=== PATIENT | male | born 1940 | race Caucasian/White ===

== ENCOUNTER 2017-01-17 04:10 | Outpatient (CLI) | payer MEDICARE, OTHER | END 2017-01-17 04:11 | disposition home or self-care (01) | LOC: BICRAD 04:10 | PROVIDERS: ATTEND Internal Medicine | DX: R05 Cough (principal); Z98.890 Other specified postprocedural states | CPT/HCPCS: 71020 ==

== ENCOUNTER → 2017-03-02 | Outpatient (CLI) | payer MEDICARE, OTHER | LOC: BICRAD 10:31 | PROVIDERS: ATTEND Internal Medicine | DX: R05 Cough (principal) | CPT/HCPCS: 71046 ==

== ENCOUNTER 2017-09-08 20:30 | Outpatient (CLI) | payer MEDICARE, OTHER | END 2017-09-08 20:31 | disposition home or self-care (01) | LOC: SLEEPLAB 20:30 | PROVIDERS: ATTEND Internal Medicine Critical Care Medicine | DX: G47.33 Obstructive sleep apnea (adult) (pediatric) (principal); R53.83 Other fatigue; G47.61 Periodic limb movement disorder; G47.31 Primary central sleep apnea; Z68.21 Body mass index [BMI] 21.0-21.9, adult | CPT/HCPCS: 95810 ==

== ENCOUNTER 2017-10-27 20:30 | Outpatient (CLI) | payer MEDICARE, OTHER | END 2017-10-27 20:31 | disposition home or self-care (01) | LOC: SLEEPLAB 20:30 | PROVIDERS: ATTEND Internal Medicine Critical Care Medicine | DX: G47.33 Obstructive sleep apnea (adult) (pediatric) (principal); R53.83 Other fatigue; G20 Parkinson's disease | CPT/HCPCS: 95811 ==

== ENCOUNTER 2018-05-08 09:56 | Day surgery (SDC) | payer MEDICARE, OTHER ==
[2018-05-07 17:24] VITALS: BMI 21.8
[2018-05-08 10:49] LABS: #Basophils 0.1 thou/uL (0.0-0.2); #Monocytes 0.5 thou/uL (0.11-0.59); #Neutrophils 4.4 thou/uL (1.40-6.50); %Basophils 1.1 % (0.0-1.0); %Eosinophils 0.4 % (0.0-10.0); %Lymphocytes 16.9 % (21.0-51.0); %Monocytes 8.4 % (0.0-10.0); %Neutrophils 73.3 % (42.0-75.0); Hemoglobin 15.5 g/dL (14.0-18.0); Mean Corpuscular HGB CONC 32.7 g/dL (32.0-36.0); Mean Corpuscular Hemoglobin 32.7 pg (27.0-31.0); Mean Platelet Volume 7.8 fL (7.4-10.4); Platelet Count 170 thou/uL (130-400); RBC Distribution Width 11.9 % (11.5-14.5); Red Blood Cell (RBC) Count 4.73 mill/uL (4.70-6.10)
[2018-05-08] MEDS ORDERED: Ketorolac Tromethamine 30 MG/ML VIAL ONE (11:06)
[2018-05-08 11:11] LABS: Anion Gap 9 mmol/L (10-20); BUN (Urea Nitrogen) 13 mg/dL (8.4-25.7); Calc. Creatinine Clearance 68 mL/min (70-130); Calcium 10.2 mg/dL (7.8-10.44); Carbon Dioxide 30 mmol/L (23-31); Chloride 102 mmol/L (98-107); Estimated GFR-MDRD 76; Glucose 149 mg/dL (83-110); Potassium 4.4 mmol/L (3.5-5.1); Sodium 137 mmol/L (136-145)
[2018-05-08] MEDS ORDERED: Dexamethasone 20 MG/5 ML VIAL ONE (11:22)
[2018-05-08] MEDS ORDERED: Ondansetron PF 4 MG/2 ML Vial ONE (11:22)
[2018-05-08] MEDS ORDERED: Lidocaine 1% PF 5 ML VIAL ONE (11:22)
[2018-05-08] MEDS ORDERED: PROPOFOL 200 MG/20 ML VIAL ONE (11:22)
[2018-05-08] MEDS ORDERED: ePHEDrine 50 MG/ML VIAL ONE (11:22)
[2018-05-08] MEDS ORDERED: Fentanyl 100 MCG/2 ML VIAL ONE (11:46)
[2018-05-08] MEDS ORDERED: Bupivacaine/Epinephrine 0.25% 30 ML VIAL ONE (11:46)
--- NOTE | 2018-05-09 13:30 | OP ---
DATE OF PROCEDURE: 05/08/2018 PREOPERATIVE DIAGNOSIS: Right inguinal hernia. POSTOPERATIVE DIAGNOSIS: Right inguinal hernia, indirect. OPERATION PERFORMED: Repair of right inguinal hernia using large mesh patch and plug. ANESTHESIA: General with laryngeal mask airway. INDICATIONS: The patient is a 77-year-old white male. He presents with an enlarging easily visible right inguinal hernia. He has undergone previous left inguinal hernia repair. DESCRIPTION OF OPERATION: Informed consent was obtained. The patient was taken to the operating room, where general anesthesia was obtained with the patient in supine position. Right groin was trimmed of hair, prepped with ChloraPrep, draped in sterile fashion. Local anesthetic was infiltrated using 0.25% Marcaine with epinephrine. Oblique right inguinal incision was created and dissection was carried through skin and subcutaneous tissue. Dissection was carried down to the fascia, which was opened parallel to its fiber so as to open the external ring. Careful dissection was carried out within the inguinal canal to identify and dissect the spermatic cord. There was no evidence of a direct inguinal hernia. The cord was dissected and the fairly large hernia sac was easily identified and dissected free from the surrounding tissue. There were significant adhesions between the remaining cord structures and the hernia sac. Hemostasis was maintained with electrocautery. The hernia sac was dissected back to its opening at the internal ring and the preperitoneal space. A large mesh plug was obtained and the apex of the plug was secured to the apex of the hernia sac and the complex was inverted into the preperitoneal space. This was largely to the superior and lateral aspect of the remaining cord structures. The plug was secured in place with 3 interrupted sutures of 2-0 Vicryl and a semi-imbricating suture was placed as well. Mesh patch was obtained, trimmed to appropriate size, and placed within the floor of the inguinal canal, and secured in place with several interrupted sutures of 2-0 Vicryl. The fascia was then closed with a running suture of 3-0 Vicryl and the remainder of the wound was closed in layers with 3-0 and 4-0 Monocryl. Additional local anesthetic was infiltrated in the wound during closure. Dermabond was placed externally. There were no complications. The patient tolerated the procedure well and was taken to Recovery Room in stable condition. Job ID: [id number]
--- NOTE | 2018-05-14 17:02 | EKG ---
Test Reason : PREOP Blood Pressure : / mmHG Vent. Rate : 074 BPM Atrial Rate : 074 BPM P-R Int : 194 ms QRS Dur : 088 ms QT Int : 404 ms P-R-T Axes : -20 059 066 degrees QTc Int : 448 ms Electronic atrial pacemaker When compared with ECG of 10-AUG-2015 12:50, T wave amplitude has decreased in Lateral leads Confirmed by ZITA LONGORIA (2) on 05/14/2018 5:02:25 PM Referred By: BE Confirmed By:ZITA LONGORIA
== END 2018-05-08 17:15 | disposition home or self-care (01) ==
LOC: SDC 09:56
PROVIDERS: ATTEND Specialist
PROC: 0YU50JZ Supplement Right Inguinal Region with Synthetic Substitute, Open Approach (ICD-10-PCS; principal; 2018-05-08)
DX: K40.90 Unilateral inguinal hernia, without obstruction or gangrene, not specified as recurrent (principal); G20 Parkinson's disease; Z79.82 Long term (current) use of aspirin; Z79.899 Other long term (current) drug therapy; Z88.8 Allergy status to other drugs, medicaments and biological substances; Z95.1 Presence of aortocoronary bypass graft; Z90.49 Acquired absence of other specified parts of digestive tract; Z98.890 Other specified postprocedural states
CPT/HCPCS: 49505; 80048; 85025; 93005; C1781; 36415; 93010; J1100; J1885; J2001; J2405; J2704; J3010; J3490